=== PATIENT | male | born 1980 | race Caucasian/White ===

== ENCOUNTER 2018-10-07 09:26 | Emergency (ER) | payer OTHER ==
[~2018-10-07 09:26] MED LIST: IBUPROFEN 800800 MG PO; MULTI VITAMINS; PREDNISONE 20 M20 MG PO
[2018-10-07 09:53] LABS: ABSOLUTE BASOPHILS 0.1 thou/uL (0.0-0.2); ABSOLUTE EOSINOPHILS 0.3 thou/uL (0.0-0.7); ABSOLUTE MONOCYTES 0.9 thou/uL (0.0-1.2); ABSOLUTE NEUTROPHILS 4.9 thou/uL (1.6-8.1); EOSINOPHILS 3.2 %; HEMATOCRIT 49.2 % (42.0-52.0); HEMOGLOBIN 16.4 gm/dL (14.0-18.0); LYMPHOCYTES 24.1 %; MCH 28.3 pg (26.0-34.0); MCHC 33.2 g/dL (28.0-37.0); MCV 85.2 fL (80.0-100.0); MPV 8.3 fl. (7.2-11.1); NUCLEATED RBCS 0 /100WBC; PLATELET COUNT* 320 thou/uL (150-400); POLYS 60.7 %; RBC 5.78 mil/uL (4.50-6.00); RDW-CV 13.3 % (10.5-14.5); WBC 8.1 thou/uL (4.0-11.0)
[2018-10-07] MEDS ORDERED: WELLBUTRIN XL150 MG PO (09:57)
[2018-10-07] MEDS ORDERED: HYDROCHLOROTH12.5 M1 PO (09:57)
[2018-10-07 10:02] LABS: PROTIME 10.4 Seconds (9.20-11.50)
[2018-10-07 10:14] LABS: ANION GAP 8 mmol/L (7-16); BUN 9 mg/dL (7-18); CALCIUM 8.5 mg/dL (8.5-10.1); CHLORIDE 102 mmol/L (98-107); CO2 29 mmol/L (21-32); CREATININE 1.3 mg/dL (0.6-1.3); GLUCOSE 135 mg/dL (70-99); POTASSIUM 3.2 mmol/L (3.5-5.1); SODIUM 139 mmol/L (136-145)
[2018-10-07 10:25] LABS: ALBUMIN 3.5 g/dL (3.4-5.0); ALKALINE PHOSPHATASE 51 U/L (46-116); LIPASE 184 U/L (73-393); NT-PRO BRAIN NAT PEPTIDE 47 pg/mL (<300); SGOT 32 U/L (15-37); SGPT 90 U/L (30-65); TOTAL BILIRUBIN 0.4 mg/dL (<0.1-1.0); TOTAL PROTEIN 7.4 g/dL (6.4-8.2); TROPONIN-I LEVEL <0.06 ng/mL (<0.06)
[2018-10-07] MEDS ORDERED: VALACYCLOVIR500 MG PO (12:09)
[2018-10-07] MEDS ORDERED: PREDNISONE 10 M10 M1 PO (12:13)
[2018-10-07 12:45] VITALS: BP 128/90
--- NOTE | 2018-10-08 16:56 | EKG ---
[place] [address] ELECTROCARDIOGRAM REPORT Name: SHANEBRITTANYKAI Irving Room: [facility]#: [id number] Admission: 10/07/18 Attend Phys: Discharge: 10/07/18 Date of : 76 Report #: [id number] THIS REPORT FOR: //name// [facility] ED Test Date: 2018-10-07 Test Time: 09:57:24 Pat Name: KAI LYNN Department: Room: Gender: Clinical Product Specialist: : [id number] Requested By: Terrell Yang Order Number: [id number] MD: Zoran Almodovar Measurements Intervals [place] Rate: 83 P: 29 VA: 139 QRS: 12 QRSD: 84 T: 19 QT: 339 QTc: 399 Interpretive Statements Sinus rhythm Abnormal R-wave progression, early transition No previous ECG available for comparison Electronically Signed On 10-08-2018 16:56:42 CDT by Zoran Almodovar [email or web address] <ELECTRONICALLY SIGNED> By: Zoran Almodovar MD, [facility] 10/08/18 [id number] Zoran Almodovar MD, FACC /EPI
== END 2018-10-07 12:48 | disposition home or self-care (01) ==
LOC: M.ERS 09:26
PROVIDERS: Emergency Medicine
DX: G51.0 Bell's palsy (principal); R53.1 Weakness; H57.10 Ocular pain, unspecified eye